=== PATIENT | female | born 1980 | race Native Hawaiian/Other Pacific Islander ===

== ENCOUNTER 2023-08-04 15:32 | Outpatient (CLI) | payer SELFPAY ==
[~2023-08-04] VITALS: Ht 157.5 cm; Wt 76.2 kg
== END 2023-08-04 19:13 | disposition home or self-care (01) ==
LOC: INF 15:32
PROVIDERS: ATTEND Internal Medicine Endocrinology, Diabetes & Metabolism
DX: D50.8 Other iron deficiency anemias (principal)
CPT/HCPCS: J1200; J2930; Q0138